=== PATIENT | male | born 1970 | race African-American/Black ===

== ENCOUNTER 2019-08-29 18:33 | Emergency (ER) | payer OTHER ==
[~2019-08-29] VITALS: Ht 185.4 cm; Wt 101.3 kg
[2019-08-29] MEDS ORDERED: IBUPROFEN 400 MG TABLET. PO ONE (19:15)
[2019-08-29] MEDS ORDERED: NEOMY/BACITR/POLYMYXIN OINT PACKET. TP ONE (19:15)
[2019-08-29 19:41] LABS: BASO % 1 % (0-3); EOS % 1 % (0-3); HEMATOCRIT 40.6 % (39.0-53.0); HEMOGLOBIN 13.6 g/dL (13.0-17.5); LYMPH # 1.3 x10^3/uL (1.0-4.8); LYMPH % 35 % (24-48); MEAN CORPUSCULAR HEMOGLOBIN 31 pg (25-35); MEAN CORPUSCULAR HGB CONC 34 g/dL (31-37); MEAN CORPUSCULAR VOLUME 91 fL (79-100); MONO # 0.8 x10^3/uL (0.0-1.1); MONO % 22 % (0-9); NEUT # 1.6 x10^3/uL (1.8-7.7); NEUT % 42 % (31-73); PLATELET COUNT 301 x10^3/uL (140-400); RED BLOOD COUNT 4.46 x10^6/uL (4.30-5.70); RED CELL DISTRIBUTION WIDTH 14.3 % (11.5-14.5); WHITE BLOOD COUNT 3.8 x10^3/uL (4.0-11.0)
[2019-08-29 19:52] LABS: CREATININE 1.2 mg/dL (0.7-1.3); GFR 77.9; POTASSIUM 4.2 mmol/L (3.5-5.1)
--- NOTE | 2019-08-29 19:58 | RAD ---
EXAM: AP, oblique and lateral views of the left ankle DATE: 08/29/2019 7:12 PM INDICATION: Left lower extremity swelling and infection COMPARISON: No Prior FINDINGS/ IMPRESSION: Screw plate fixation of the distal tibia and fibula in good alignment without definite hardware complication. Soft tissue swelling about the left lower extremity. Ankle mortise is congruent. Talar dome is intact. Electronically signed by: Davon Maldonado MD (08/29/2019 7:55 PM) [facility]SE[facility]
[2019-08-29 20:04] LABS: % BANDS 1 % (0-9); % BASOS 1 % (0-3); % LYMPHS 36 % (24-48); % MONOS 16 % (0-10); % SEGS 46 % (35-66)
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
[2019-08-29 20:09] LABS: PLT ESTIMATE ADEQUATE (ADEQUATE)
[2019-08-29] MEDS ORDERED: BACI28.34 TP (20:17)
[2019-08-29] MEDS ORDERED: CLIN150C14 PO (20:17)
[2019-08-29 20:34] VITALS: BP 143/90
== END 2019-08-29 20:40 | disposition home or self-care (01) ==
LOC: ER 18:33 → EEVIPCON 18:33 → ER 20:40
DX: L03.116 Cellulitis of left lower limb (principal); F31.9 Bipolar disorder, unspecified; Z86.73 Personal history of transient ischemic attack (TIA), and cerebral infarction without residual deficits; Z98.890 Other specified postprocedural states; F17.200 Nicotine dependence, unspecified, uncomplicated; Z88.5 Allergy status to narcotic agent; Z88.6 Allergy status to analgesic agent
CPT/HCPCS: 36415; 73610; 80048; 83605; 85007; 85025; 99284